=== PATIENT | male | born 1985 | race Caucasian/White ===

== ENCOUNTER 2017-11-02 16:05 | Emergency (ER) | payer MEDICARE, MEDICAID ==
[~2017-11-02] VITALS: Ht 185.4 cm; Wt 117.3 kg
[~2017-11-02 16:05] MED LIST: CLON-528 PO; DIAZ5TAB PO; LAMO25TA62 PO; METH20TA PO; OLAN2.5T3 PO; ZOL50T PO
[2017-11-02 16:42] LABS: CLARITY,URINE CLEAR (Clear); COLOR,URINE YELLOW (Yellow); GLUCOSE, URINE NEGATIVE (Neg); KETONES,URINE NEGATIVE (Neg); LEUKOCYTE ESTERASE ,URINE NEGATIVE (Neg); NITRITES, URINE NEGATIVE (Neg); OCCULT BLOOD,URINE NEGATIVE (Neg); PROTEIN,URINE NEGATIVE (Neg); UROBILINOGEN,URINE 0.2 E.U/dL (0.2-1.0)
[2017-11-02 16:46] LABS: UA COLLECTION TYPE CLN CATCH MIDSTREAM
[2017-11-02 16:52] LABS: URINE AMPHETAMINE SCREEN NEGATIVE (Neg); URINE BARBITUATE SCREEN NEGATIVE (Neg); URINE BENZODIAZEPINES SCREEN NEGATIVE (Neg); URINE CANNABINOID SCREEN POSITIVE (Neg); URINE COCAINE SCREEN NEGATIVE (Neg); URINE METHADONE SCREEN NEGATIVE (Neg); URINE OPIATE SCREEN NEGATIVE (Neg); URINE PHENCYCLIDINE SCREEN NEGATIVE (Neg)
[2017-11-02 17:06] LABS: BASOPHILS % (AUTO) 0.3 % (0-1); EOSINOPHILS # (AUTO) 0.1 X10'3 (0-0.9); EOSINOPHILS % (AUTO) 0.9 % (0-6); HEMATOCRIT 48.2 % (42.0-52.0); HEMOGLOBIN 16.8 g/dl (14.0-17.9); LYMPHOCYTES # (AUTO) 2.3 X10'3 (1.1-4.8); MEAN CORPUSCULAR HEMOGLOBIN 29.7 PG (27.0-31.0); MEAN CORPUSCULAR HGB CONC 34.8 % (33.0-36.5); MEAN CORPUSCULAR VOLUME 85.2 FL (78-98); MONOCYTES # (AUTO) 0.5 X10'3 (0-0.9); MONOCYTES % (AUTO) 5.1 % (2-12); NEUTROPHILS # (AUTO) 7.1 X10'3 (1.8-7.7); NEUTROPHILS % (AUTO) 70.7 % (42-75); PLATELET COUNT 291 X10'3 (140-440); RED BLOOD COUNT 5.66 X10'6 (4.70-6.10); RED CELL DISTRIBUTION WIDTH 13.7 % (11.5-14.5)
[2017-11-02 17:30] LABS: ALANINE AMINOTRANSFERASE 42 U/L (12-78); ALBUMIN 4.5 G/DL (3.4-5.0); ALBUMIN/GLOBULIN RATIO 1.2 (1.1-1.5); ALKALINE PHOSPHATASE 85 IU/L (46-116); ANION GAP 12 (8-16); ASPARTATE AMINO TRANSFERASE 11 U/L (10-37); BILIRUBIN,TOTAL 0.5 MG/DL (0.1-1.0); BLOOD UREA NITROGEN 15 MG/DL (7-18); BUN/CREATININE RATIO 13.8 (5.4-32.0); CALCIUM 9.5 MG/DL (8.5-10.1); CHLORIDE 102 MMOL/L (99-107); CREATININE 1.09 MG/DL (0.60-1.10); GLUCOSE 91 MG/DL (70-104); POTASSIUM 4.1 MMOL/L (3.5-5.1); SODIUM 136 MMOL/L (135-145); TOTAL CARBON DIOXIDE 22.3 MMOL/L (24-32); TOTAL PROTEIN 8.2 G/DL (6.4-8.2); eGFR 79 ML/MIN
[2017-11-02 17:31] LABS: ETHANOL < 0.010 GM/DL (0.0-0.010)
[2017-11-02 21:14] VITALS: BP 150/79
[2017-11-02] MEDS ORDERED: PROP40TA72 PO (21:57)
[2017-11-02] MEDS ORDERED: BENZ0.5T4 PO (22:00)
[2017-11-02] MEDS ORDERED: GABA800T2 PO (22:03)
[2017-11-02] MEDS ORDERED: clonazePAM 0.5mg tablet PO SCH (22:55)
[2017-11-02] MEDS ORDERED: gabapentin 400mg capsule PO SCH (22:56)
[2017-11-02] MEDS ORDERED: benztropine 1mg tablet PO SCH (22:57)
[2017-11-02] MEDS ORDERED: propranolol 10mg tablet PO SCH (22:57)
[2017-11-03] MEDS ORDERED: olanzapine 10mg tablet PO SCH (08:00)
[2017-11-03] MEDS ORDERED: sertraline 50mg tablet PO SCH (08:00)
[2017-11-03] MEDS ORDERED: lisinopril 10 MG tablet PO SCH (08:00)
[2017-11-03] MEDS ORDERED: lamoTRIgine 100mg tablet PO SCH (08:00)
== END 2017-11-02 21:15 ==
LOC: ER 16:05
DX: F41.9 Anxiety disorder, unspecified (principal); F31.9 Bipolar disorder, unspecified; Z98.890 Other specified postprocedural states; Z88.8 Allergy status to other drugs, medicaments and biological substances; Z79.899 Other long term (current) drug therapy
CPT/HCPCS: 36415; 80053; 80305; 80320; 81003; 84443; 85025; 99285

== ENCOUNTER 2017-11-02 19:50 | Inpatient (IN) | payer MEDICARE, MEDICAID ==
[~2017-11-02] VITALS: Ht 185.4 cm; Wt 114.0 kg
[2017-11-02 21:26] VITALS: BP 147/99
[2017-11-02] MEDS ORDERED: mag hydrox/Alum hydrox/simeth 30ml oral suspension PO PRN (21:30)
[2017-11-02] MEDS ORDERED: acetaminophen 325mg tablet PO PRN (21:30)
[2017-11-02] MEDS ORDERED: magnesium hydroxide 30ml (MOM) UD suspension PO PRN (21:30)
[2017-11-02] MEDS ORDERED: pneumococcal 23-VAL P-sac vacc 25 mcg/0.5ml vial IMVAC ONE (21:45)
[2017-11-02] MEDS ORDERED: PROP40TA72 PO (21:57)
[2017-11-02] MEDS ORDERED: BENZ0.5T4 PO (22:00)
[2017-11-02] MEDS ORDERED: GABA800T2 PO (22:03)
[2017-11-03 08:00] VITALS: BP 141/100
[2017-11-03] MEDS ORDERED: clonazePAM 0.5mg tablet PO SCH (08:00)
[2017-11-03] MEDS ORDERED: lisinopril 10 MG tablet PO SCH (08:00)
[2017-11-03] MEDS ORDERED: olanzapine 10mg tablet PO SCH (08:00)
[2017-11-03] MEDS ORDERED: lamoTRIgine 100mg tablet PO SCH (08:00)
[2017-11-03] MEDS ORDERED: benztropine 1mg tablet PO SCH (08:00)
[2017-11-03] MEDS ORDERED: sertraline 50mg tablet PO SCH (08:00)
[2017-11-03] MEDS: METHYLFOLATE 1000 MCG PO SCH (08:15)
[2017-11-03] MEDS: propranolol 40mg tablet PO SCH ×2 (08:16→20:10)
[2017-11-03 08:26] LABS: HEMOGLOBIN A1C 5.2 % (4.5-6.2)
[2017-11-03 08:40] LABS: CHOLESTEROL 260 MG/DL (0-200); HDL CHOLESTEROL 37 MG/DL (35-60); LDL CHOLESTEROL 200 MG/DL (50-100); TRIGLYCERIDES 177 MG/DL (20-135)
[2017-11-03] MEDS: gabapentin 300mg capsule PO SCH (12:42)
[2017-11-03 19:00] VITALS: BP 132/84
[2017-11-03] MEDS: benztropine 1mg tablet PO SCH (20:07)
[2017-11-03] MEDS: olanzapine 10mg tablet PO SCH (20:09)
[2017-11-03] MEDS: gabapentin 400mg capsule PO SCH (20:10)
[2017-11-04 08:00] VITALS: BP 127/90
[2017-11-04] MEDS: propranolol 40mg tablet PO SCH ×2 (08:00→20:50)
[2017-11-04] MEDS: METHYLFOLATE 1000 MCG PO SCH (08:12)
[2017-11-04] MEDS: lisinopril 20mg tablet PO SCH (08:13)
[2017-11-04] MEDS: gabapentin 300mg capsule PO SCH ×2 (08:13→12:53)
[2017-11-04] MEDS: atorvastatin 20mg tablet PO SCH (08:13)
[2017-11-04] MEDS: lamoTRIgine 25mg tablet PO SCH (08:14)
[2017-11-04] MEDS: lamoTRIgine 100mg tablet PO SCH (08:14)
[2017-11-04] MEDS: sertraline 50mg tablet PO SCH (08:15)
[2017-11-04] MEDS: olanzapine 10mg tablet PO SCH ×2 (08:15→20:51)
[2017-11-04] MEDS: benztropine 1mg tablet PO SCH ×2 (08:15→20:00)
[2017-11-04] MEDS: acetaminophen 325mg tablet PO PRN ×2 (12:54→19:19)
[2017-11-04 19:00] VITALS: BP 137/75
[2017-11-04] MEDS: gabapentin 400mg capsule PO SCH (20:51)
[2017-11-05 08:00] VITALS: BP 138/91
[2017-11-05] MEDS: benztropine 1mg tablet PO SCH ×3 (08:00→20:13)
[2017-11-05] MEDS: lamoTRIgine 100mg tablet PO SCH (08:08)
[2017-11-05] MEDS: lamoTRIgine 25mg tablet PO SCH (08:08)
[2017-11-05] MEDS: gabapentin 300mg capsule PO SCH ×2 (08:09→13:44)
[2017-11-05] MEDS: sertraline 50mg tablet PO SCH (08:09)
[2017-11-05] MEDS: atorvastatin 20mg tablet PO SCH (08:09)
[2017-11-05] MEDS: propranolol 40mg tablet PO SCH ×2 (08:09→20:13)
[2017-11-05] MEDS: lisinopril 20mg tablet PO SCH (08:09)
[2017-11-05] MEDS: olanzapine 10mg tablet PO SCH ×2 (08:09→20:12)
[2017-11-05] MEDS: METHYLFOLATE 1000 MCG PO SCH (08:16)
[2017-11-05] MEDS ORDERED: hydrocortisone 1% cream 28gm TP PRN (13:05)
[2017-11-05 19:45] VITALS: BP 114/72
[2017-11-05] MEDS: hydrocortisone 1% cream 28gm TP SCH (20:00)
[2017-11-05] MEDS: gabapentin 400mg capsule PO SCH (20:12)
[2017-11-06] MEDS: gabapentin 300mg capsule PO SCH ×2 (07:21→13:07)
[2017-11-06 08:00] VITALS: BP 125/89
[2017-11-06] MEDS: benztropine 1mg tablet PO SCH ×2 (08:00→20:00)
[2017-11-06] MEDS: lamoTRIgine 25mg tablet PO SCH (08:27)
[2017-11-06] MEDS: olanzapine 10mg tablet PO SCH ×2 (08:28→21:10)
[2017-11-06] MEDS: atorvastatin 20mg tablet PO SCH (08:28)
[2017-11-06] MEDS: sertraline 50mg tablet PO SCH (08:28)
[2017-11-06] MEDS: lamoTRIgine 100mg tablet PO SCH (08:28)
[2017-11-06] MEDS: lisinopril 20mg tablet PO SCH (08:28)
[2017-11-06] MEDS: propranolol 40mg tablet PO SCH ×2 (08:28→21:10)
[2017-11-06] MEDS: hydrocortisone 1% cream 28gm TP SCH ×2 (08:29→21:12)
[2017-11-06] MEDS: METHYLFOLATE 1000 MCG PO SCH (08:47)
[2017-11-06 20:00] VITALS: BP 111/78
[2017-11-06] MEDS ORDERED: prazosin 1mg capsule PO SCH (21:00)
[2017-11-06] MEDS: gabapentin 400mg capsule PO SCH (21:10)
[2017-11-07 08:00] VITALS: BP 118/85
[2017-11-07] MEDS: olanzapine 10mg tablet PO SCH ×2 (08:14→20:27)
[2017-11-07] MEDS: benztropine 1mg tablet PO SCH ×2 (08:14→20:00)
[2017-11-07] MEDS: METHYLFOLATE 1000 MCG PO SCH (08:15)
[2017-11-07] MEDS: lamoTRIgine 25mg tablet PO SCH (08:17)
[2017-11-07] MEDS: gabapentin 300mg capsule PO SCH ×2 (08:18→12:50)
[2017-11-07] MEDS: propranolol 40mg tablet PO SCH ×2 (08:18→20:27)
[2017-11-07] MEDS: hydrocortisone 1% cream 28gm TP SCH ×2 (08:18→20:29)
[2017-11-07] MEDS: sertraline 50mg tablet PO SCH (08:18)
[2017-11-07] MEDS: lamoTRIgine 100mg tablet PO SCH (08:18)
[2017-11-07] MEDS: lisinopril 20mg tablet PO SCH (08:18)
[2017-11-07] MEDS: atorvastatin 20mg tablet PO SCH (08:18)
[2017-11-07 20:00] VITALS: BP 133/67
[2017-11-07] MEDS: prazosin 1mg capsule PO SCH (20:27)
[2017-11-07] MEDS: gabapentin 400mg capsule PO SCH (20:27)
[2017-11-08 08:00] VITALS: BP 138/95
[2017-11-08] MEDS: METHYLFOLATE 1000 MCG PO SCH (08:08)
[2017-11-08] MEDS: sertraline 50mg tablet PO SCH (08:09)
[2017-11-08] MEDS: lamoTRIgine 25mg tablet PO SCH (08:10)
[2017-11-08] MEDS: atorvastatin 20mg tablet PO SCH (08:11)
[2017-11-08] MEDS: lamoTRIgine 100mg tablet PO SCH (08:11)
[2017-11-08] MEDS: benztropine 1mg tablet PO SCH ×2 (08:12→20:00)
[2017-11-08] MEDS: propranolol 40mg tablet PO SCH ×2 (08:12→20:13)
[2017-11-08] MEDS: gabapentin 400mg capsule PO SCH ×3 (08:13→20:13)
[2017-11-08] MEDS: hydrocortisone 1% cream 28gm TP SCH ×2 (08:13→20:12)
[2017-11-08] MEDS: lisinopril 20mg tablet PO SCH (08:13)
[2017-11-08] MEDS: olanzapine 10mg tablet PO SCH ×2 (08:19→20:13)
[2017-11-08] MEDS: prazosin 1mg capsule PO SCH (20:13)
[2017-11-08 20:53] VITALS: BP 103/73
[2017-11-09 08:00] VITALS: BP 132/85
[2017-11-09] MEDS: propranolol 40mg tablet PO SCH (08:22)
[2017-11-09] MEDS: lisinopril 20mg tablet PO SCH (08:23)
[2017-11-09] MEDS: benztropine 1mg tablet PO SCH (08:23)
[2017-11-09] MEDS: lamoTRIgine 100mg tablet PO SCH (08:23)
[2017-11-09] MEDS: lamoTRIgine 25mg tablet PO SCH (08:23)
[2017-11-09] MEDS: atorvastatin 20mg tablet PO SCH (08:23)
[2017-11-09] MEDS: olanzapine 10mg tablet PO SCH (08:23)
[2017-11-09] MEDS: gabapentin 400mg capsule PO SCH ×2 (08:23→12:47)
[2017-11-09] MEDS: METHYLFOLATE 1000 MCG PO SCH (08:24)
[2017-11-09] MEDS: hydrocortisone 1% cream 28gm TP SCH (08:27)
[2017-11-09] MEDS: sertraline 50mg tablet PO SCH (08:29)
[2017-11-09] MEDS ORDERED: LAMO25TA PO (09:28)
[2017-11-09] MEDS ORDERED: ATOR20TA66 PO (09:28)
[2017-11-09] MEDS ORDERED: LAMO100T89 PO (09:28)
[2017-11-09] MEDS ORDERED: BENZ1TAB7 PO (09:28)
[2017-11-09] MEDS ORDERED: ZOL50T PO (09:28)
[2017-11-09] MEDS ORDERED: OLAN10TA19 PO (09:28)
[2017-11-09] MEDS ORDERED: GABA-534 PO ×2 (09:28)
[2017-11-09] MEDS ORDERED: LISI-600 PO (09:28)
[2017-11-09] MEDS ORDERED: PRAZ1CAP5 PO (09:28)
== END 2017-11-09 13:30 | disposition home or self-care (01) | DRG 885 ==
LOC: ADULT MH 19:50
PROVIDERS: ADMIT Psychiatry & Neurology Psychiatry; ATTEND Psychiatry & Neurology Psychiatry
DX: F31.63 Bipolar disorder, current episode mixed, severe, without psychotic features (principal); F15.20 Other stimulant dependence, uncomplicated; R45.851 Suicidal ideations; F43.10 Post-traumatic stress disorder, unspecified; G47.33 Obstructive sleep apnea (adult) (pediatric); E78.00 Pure hypercholesterolemia, unspecified; F11.21 Opioid dependence, in remission; E78.5 Hyperlipidemia, unspecified; M54.5 Low back pain; M48.061 Spinal stenosis, lumbar region without neurogenic claudication; G62.9 Polyneuropathy, unspecified; G89.29 Other chronic pain; I10 Essential (primary) hypertension; F12.10 Cannabis abuse, uncomplicated; Z88.8 Allergy status to other drugs, medicaments and biological substances; Z79.899 Other long term (current) drug therapy; Z87.820 Personal history of traumatic brain injury; Z87.891 Personal history of nicotine dependence; Z84.1 Family history of disorders of kidney and ureter; Z23 Encounter for immunization
CPT/HCPCS: 36415; 80061; 83036; 84443; 87070; 90732; 99285; J3490

== ENCOUNTER 2019-10-22 16:04 | Emergency (ER) | payer MEDICARE, MEDICAID ==
[~2019-10-22] VITALS: Ht 185.4 cm; Wt 122.7 kg
[~2019-10-22 16:04] MED LIST changes: +ATOR20TA66 PO; +BENZ1TAB7 PO; -CLON-528 PO; -DIAZ5TAB PO; +GABA-534 PO; +LAMO100T PO; +LAMO25TA5 PO; -LAMO25TA62 PO; +LISI-600 PO; -METH20TA PO; +OLAN10TA19 PO; -OLAN2.5T3 PO; +PRAZ1CAP5 PO; +PROP40TA72 PO; +SERT-153 PO; -ZOL50T PO
[2019-10-22 16:20] VITALS: BP 153/91
[2019-10-22] MEDS ORDERED: HYDROcodone/acetaminophen 5mg/325mg tablet PO ONE (18:15)
[2019-10-22] MEDS ORDERED: HYDR-3965 PO (18:16)
== END 2019-10-22 18:31 | disposition home or self-care (01) ==
LOC: ER 16:05
DX: M54.5 Low back pain (principal); G89.29 Other chronic pain; R32 Unspecified urinary incontinence; F41.9 Anxiety disorder, unspecified; F31.9 Bipolar disorder, unspecified; Z98.890 Other specified postprocedural states; Z72.89 Other problems related to lifestyle; Z88.1 Allergy status to other antibiotic agents; Z79.899 Other long term (current) drug therapy
CPT/HCPCS: 99283

== ENCOUNTER 2019-11-04 15:41 | Emergency (ER) | payer MEDICARE, MEDICAID ==
[~2019-11-04] VITALS: Ht 185.4 cm; Wt 118.2 kg
[2019-11-04 15:46] VITALS: BP 158/105
[2019-11-04] MEDS ORDERED: ONDA4TAB6 PO (16:16)
[2019-11-04] MEDS ORDERED: HYDR-4383 PO (16:16)
[2019-11-04] MEDS ORDERED: ondansetron 4mg rapidly disintigrating tab PO ONE (16:20)
[2019-11-04] MEDS ORDERED: HYDROcodone/acetaminophen 5mg/325mg tablet PO ONE (16:20)
== END 2019-11-04 16:47 | disposition home or self-care (01) ==
LOC: ER 15:42
DX: M54.5 Low back pain (principal); G89.29 Other chronic pain; F41.9 Anxiety disorder, unspecified; F31.9 Bipolar disorder, unspecified; Z98.890 Other specified postprocedural states; Z72.89 Other problems related to lifestyle; Z88.8 Allergy status to other drugs, medicaments and biological substances; Z79.899 Other long term (current) drug therapy
CPT/HCPCS: 99283

== ENCOUNTER 2020-05-04 09:56 | Emergency (ER) | payer MEDICARE, MEDICAID ==
[~2020-05-04] VITALS: Ht 185.4 cm; Wt 121.3 kg
[~2020-05-04 09:56] MED LIST changes: +HYDR-4383 PO; +ONDA4TAB6 PO
[2020-05-04 10:00] VITALS: BP 149/95
[2020-05-04] MEDS ORDERED: LORA-269 PO (10:43)
== END 2020-05-04 11:02 | disposition home or self-care (01) ==
LOC: ER 09:56
DX: F41.9 Anxiety disorder, unspecified (principal); I10 Essential (primary) hypertension; G89.29 Other chronic pain; F31.9 Bipolar disorder, unspecified; Z72.89 Other problems related to lifestyle; Z98.890 Other specified postprocedural states; Z88.6 Allergy status to analgesic agent; Z79.899 Other long term (current) drug therapy
CPT/HCPCS: 93005; 99283

== ENCOUNTER 2021-09-02 11:51 | Emergency (ER) | payer MEDICARE, MEDICAID ==
[~2021-09-02] VITALS: Ht 185.4 cm; Wt 120.5 kg
[~2021-09-02 11:51] MED LIST changes: -LISI-600 PO; +LISI20TA28 PO; +LORA-269 PO; -OLAN10TA19 PO; +OLAN10TA73 PO
[2021-09-02 12:00] VITALS: BP 134/93
[2021-09-02 12:32] LABS: BASOPHILS % (AUTO) 0.4 % (0-1); EOSINOPHILS # (AUTO) 0.1 X10'3 (0-0.9); EOSINOPHILS % (AUTO) 0.9 % (0-6); HEMATOCRIT 45.2 % (42.0-52.0); HEMOGLOBIN 15.5 g/dl (14.0-17.9); LYMPHOCYTES # (AUTO) 2.1 X10'3 (1.1-4.8); LYMPHOCYTES % (AUTO) 24.7 % (21-51); MEAN CORPUSCULAR HEMOGLOBIN 29.6 PG (27.0-31.0); MEAN CORPUSCULAR HGB CONC 34.3 g/dL (33.0-36.5); MEAN CORPUSCULAR VOLUME 86.3 FL (78-98); MEAN PLATELET VOLUME 8.3 FL (7.4-10.4); MONOCYTES # (AUTO) 0.4 X10'3 (0-0.9); MONOCYTES % (AUTO) 4.9 % (2-12); NEUTROPHILS # (AUTO) 5.8 X10'3 (1.8-7.7); NEUTROPHILS % (AUTO) 69.1 % (42-75); PLATELET COUNT 351 X10'3 (140-440); RED BLOOD COUNT 5.24 X10'6 (4.70-6.10); RED CELL DISTRIBUTION WIDTH 13.8 % (11.5-14.5); WHITE BLOOD COUNT 8.5 X10'3 (4.5-11.0)
[2021-09-02 12:47] LABS: ALANINE AMINOTRANSFERASE 77 U/L (12-78); ALBUMIN 4.1 G/DL (3.4-5.0); ALBUMIN/GLOBULIN RATIO 1.2 (1.1-1.5); ALKALINE PHOSPHATASE 101 IU/L (46-116); AMYLASE 38 U/L (25-115); ANION GAP 5 (8-16); ASPARTATE AMINO TRANSFERASE 21 U/L (10-37); BILIRUBIN,TOTAL 0.4 MG/DL (0.1-1.0); BLOOD UREA NITROGEN 8 MG/DL (7-18); BUN/CREATININE RATIO 7.2 (5.4-32.0); CALCIUM 9.3 MG/DL (8.5-10.1); CHLORIDE 105 MMOL/L (99-107); CREATININE 1.11 MG/DL (0.60-1.10); GLUCOSE 93 MG/DL (70-104); LIPASE 81 U/L (73-393); POTASSIUM 4.4 MMOL/L (3.5-5.1); SODIUM 138 MMOL/L (135-145); TOTAL CARBON DIOXIDE 27.7 MMOL/L (24-32); TOTAL PROTEIN 7.6 G/DL (6.4-8.2); eGFR 75 ML/MIN
== END 2021-09-02 15:42 | disposition left against medical advice (07) ==
LOC: ER 11:51
DX: R10.30 Lower abdominal pain, unspecified (principal); Z53.21 Procedure and treatment not carried out due to patient leaving prior to being seen by health care provider
CPT/HCPCS: 36415; 80053; 82150; 83690; 85025

== ENCOUNTER 2022-03-03 15:20 | Emergency (ER) | payer MEDICARE, MEDICAID ==
[~2022-03-03] VITALS: Ht 185.4 cm; Wt 120.5 kg
[2022-03-03 15:25] VITALS: BP 144/93
--- NOTE | 2022-03-03 15:28 | NUR ---
Dominic PINA in triage
[2022-03-03] MEDS ORDERED: LIDOcaine 1% w/EPI 1:100,000 30ml vial (MDV) IJ ONE (15:35)
[2022-03-03] MEDS ORDERED: ondansetron 4mg rapidly disintigrating tab PO ONE (15:35)
[2022-03-03] MEDS ORDERED: amox tr/potassium clavulanate 875/125mg TAB PO ONE (15:35)
[2022-03-03] MEDS ORDERED: AMOX-117 PO (15:42)
== END 2022-03-03 15:56 | disposition home or self-care (01) ==
LOC: ER 15:20
DX: K04.7 Periapical abscess without sinus (principal); G89.29 Other chronic pain; M54.9 Dorsalgia, unspecified; F31.9 Bipolar disorder, unspecified; Z88.8 Allergy status to other drugs, medicaments and biological substances; Z88.6 Allergy status to analgesic agent; Z79.899 Other long term (current) drug therapy; Z79.1 Long term (current) use of non-steroidal anti-inflammatories (NSAID)
CPT/HCPCS: 41800; 99284; A6449

== ENCOUNTER 2022-09-12 11:58 | Emergency (ER) | payer MEDICARE, MEDICAID ==
[~2022-09-12] VITALS: Ht 185.4 cm; Wt 125.0 kg
[~2022-09-12 11:58] MED LIST changes: -BENZ1TAB7 PO; +BENZ1TAB78 PO
[2022-09-12 12:04] VITALS: BP 120/84
[2022-09-12] MEDS ORDERED: HYDR-3973 PO (13:22)
== END 2022-09-12 13:37 | disposition home or self-care (01) ==
LOC: ER 11:59
DX: M48.061 Spinal stenosis, lumbar region without neurogenic claudication (principal); G89.29 Other chronic pain; M54.9 Dorsalgia, unspecified; F31.9 Bipolar disorder, unspecified; Z88.6 Allergy status to analgesic agent; Z79.899 Other long term (current) drug therapy
CPT/HCPCS: 99283

== ENCOUNTER 2022-10-03 13:24 | Emergency (ER) | payer MEDICARE, MEDICAID ==
[~2022-10-03] VITALS: Ht 185.4 cm; Wt 124.8 kg
[~2022-10-03 13:24] MED LIST changes: +HYDR-3973 PO
[2022-10-03 13:36] VITALS: BP 138/94
[2022-10-03] MEDS ORDERED: CYCL-1 PO (16:07)
[2022-10-03] MEDS ORDERED: IBUP-1986 PO (16:07)
[2022-10-03] MEDS ORDERED: HYDR-3973 PO (16:07)
== END 2022-10-03 16:14 | disposition home or self-care (01) ==
LOC: ER 13:25
DX: G89.29 Other chronic pain (principal); M54.50 Low back pain, unspecified; F31.9 Bipolar disorder, unspecified; Z88.5 Allergy status to narcotic agent
CPT/HCPCS: 99283

== ENCOUNTER 2023-04-01 15:34 | Emergency (ER) | payer MEDICARE, MEDICAID ==
[~2023-04-01] VITALS: Ht 185.4 cm; Wt 119.4 kg
[~2023-04-01 15:34] MED LIST changes: +CYCL-1 PO; -GABA-534 PO; +GABA-535 PO; -HYDR-3973 PO; +IBUP-1986 PO
[2023-04-01 15:42] VITALS: TEMP 97.6
[2023-04-01 16:07] LABS: ALANINE AMINOTRANSFERASE 43 U/L (12-78); ALBUMIN 3.9 G/DL (3.4-5.0); ALBUMIN/GLOBULIN RATIO 1.1 (1.1-1.5); ALKALINE PHOSPHATASE 121 IU/L (46-116); ANION GAP 10 (8-16); ASPARTATE AMINO TRANSFERASE 19 U/L (10-37); BILIRUBIN,TOTAL 0.5 MG/DL (0.1-1.0); BLOOD UREA NITROGEN 11 MG/DL (7-18); BUN/CREATININE RATIO 10.8 (10.0-20.0); CALCIUM 9.4 MG/DL (8.5-10.1); CHLORIDE 100 MMOL/L (99-107); CREATININE 1.02 MG/DL (0.60-1.10); GLUCOSE 101 MG/DL (70-104); POTASSIUM 4.1 MMOL/L (3.5-5.1); SODIUM 135 MMOL/L (135-145); TOTAL PROTEIN 7.6 G/DL (6.4-8.2); eCRCL 113 ML/MIN; eGFR 83 ML/MIN
[2023-04-01 16:10] LABS: BASOPHILS # (AUTO) 0.1 X10'3 (0-0.2); BASOPHILS % (AUTO) 0.4 % (0-1); EOSINOPHILS # (AUTO) 0.1 X10'3 (0-0.9); EOSINOPHILS % (AUTO) 0.8 % (0-6); HEMOGLOBIN 15.4 g/dl (14.0-17.9); LYMPHOCYTES # (AUTO) 2.6 X10'3 (1.1-4.8); LYMPHOCYTES % (AUTO) 15.3 % (21-51); MEAN CORPUSCULAR HEMOGLOBIN 28.6 PG (27.0-31.0); MEAN CORPUSCULAR HGB CONC 34.3 g/dL (33.0-36.5); MEAN CORPUSCULAR VOLUME 83.3 FL (78-98); MEAN PLATELET VOLUME 8.8 FL (7.4-10.4); MONOCYTES # (AUTO) 0.9 X10'3 (0-0.9); NEUTROPHILS # (AUTO) 13.4 X10'3 (1.8-7.7); NEUTROPHILS % (AUTO) 78.5 % (42-75); PLATELET COUNT 304 X10'3 (140-440); RED CELL DISTRIBUTION WIDTH 15.1 % (11.5-14.5)
[2023-04-01] MEDS ORDERED: ondansetron/PF 4mg/2ml inj IV ONE (16:20)
[2023-04-01] MEDS ORDERED: normal saline 1000ML IV soln IVB ONE ×2 (16:20→17:10)
[2023-04-01] MEDS ORDERED: morphine 4 MG/ML inj SYRINge IV ONE ×2 (16:20→17:10)
[2023-04-01 16:22] LABS: PRO BRAIN NATRIURETIC PEPTIDE < 30 PG/ML (0-125)
[2023-04-01 16:40] LABS: LIPASE 57 U/L (16-77)
[2023-04-01] MEDS ORDERED: dicyclomine 10mg/ml 2ml ampule IM ONE (17:10)
[2023-04-01 19:25] VITALS: BP 140/93; PULSE 62; RESP 16; O2SAT 98
== END 2023-04-01 19:27 | disposition home or self-care (01) ==
LOC: ER 15:35
DX: K56.7 Ileus, unspecified (principal); F31.9 Bipolar disorder, unspecified; Z88.5 Allergy status to narcotic agent; Z79.899 Other long term (current) drug therapy; Z79.1 Long term (current) use of non-steroidal anti-inflammatories (NSAID)
CPT/HCPCS: 36415; 71045; 74176; 76700; 80053; 83690; 83880; 84484; 85025; 93005; 96372; 96374; 96375; 96376; 99285; J0500; J2270; J2405; J7030

== ENCOUNTER 2023-08-24 09:43 | Emergency (ER) | payer MEDICARE, MEDICAID ==
[~2023-08-24] VITALS: Ht 185.4 cm; Wt 110.8 kg
[2023-08-24 10:05] VITALS: TEMP 98.1
[2023-08-24 10:20] VITALS: BP 9/89; PULSE 70; RESP 18; O2SAT 100
[2023-08-24] MEDS ORDERED: NAPR-56 PO (11:09)
== END 2023-08-24 11:17 | disposition home or self-care (01) ==
LOC: ER 09:43
DX: S63.655A Sprain of metacarpophalangeal joint of left ring finger, initial encounter (principal); F31.9 Bipolar disorder, unspecified; Z88.5 Allergy status to narcotic agent; Z79.899 Other long term (current) drug therapy; Z79.1 Long term (current) use of non-steroidal anti-inflammatories (NSAID); W23.0XXA Caught, crushed, jammed, or pinched between moving objects, initial encounter; Y93.89 Activity, other specified; Y92.89 Other specified places as the place of occurrence of the external cause; Y99.8 Other external cause status
CPT/HCPCS: 73130; 99283